=== PATIENT | male | born 1965 | race African-American/Black ===

== ENCOUNTER 2019-06-02 19:37 | Emergency (ER) | payer OTHER | END 2019-06-02 21:27 | disposition left against medical advice (07) | LOC: ER 19:37 | DX: Z53.21 Procedure and treatment not carried out due to patient leaving prior to being seen by health care provider (principal) ==

== ENCOUNTER 2023-03-10 10:42 | Emergency (ER) | payer MEDICARE, OTHER ==
[~2023-03-10] VITALS: Ht 190.5 cm; Wt 100.0 kg
[2023-03-10 10:48] VITALS: BP 141/78
[2023-03-10] MEDS ORDERED: CYCL10TA21 MT (12:12)
[2023-03-10] MEDS ORDERED: NAP5EC PO (12:12)
== END 2023-03-10 12:42 | disposition home or self-care (01) ==
LOC: ER 10:42
DX: S16.1XXA Strain of muscle, fascia and tendon at neck level, initial encounter (principal); V49.49XA Driver injured in collision with other motor vehicles in traffic accident, initial encounter; Y93.89 Activity, other specified; Y92.89 Other specified places as the place of occurrence of the external cause; Y99.8 Other external cause status
CPT/HCPCS: 99283

== ENCOUNTER 2023-04-04 14:30 | Emergency (ER) | payer MEDICARE, OTHER ==
[~2023-04-04] VITALS: Ht 190.5 cm; Wt 99.0 kg
[~2023-04-04 14:30] MED LIST: CYCL10TA21 MT; NAP5EC PO
[2023-04-04 14:57] VITALS: BP 141/90
[2023-04-04] MEDS ORDERED: NAP5EC PO (16:48)
[2023-04-04] MEDS ORDERED: NAPROXEN 375MG TABLET PO ONE (17:00)
[2023-04-04] MEDS ORDERED: NAPROXEN 375MG TABLET PO NR (17:15)
== END 2023-04-04 17:26 | disposition home or self-care (01) ==
LOC: ER 14:30
DX: M54.2 Cervicalgia (principal); Z76.0 Encounter for issue of repeat prescription
CPT/HCPCS: 99281